=== PATIENT | female | born 1960 | race Caucasian/White ===

== ENCOUNTER 2016-08-26 02:20 | Emergency (ER) | payer OTHER ==
[~2016-08-26 02:20] MED LIST: AUGMENTIN 875-1 EAC2 PO; CELEXA20 M2 PO; FLAGYL500 M1 PO; PROMETHAZINE HC25 M3 PO; SYNTHROID88 MC1 PO; VIBRAMYCIN100 M1 PO
== END 2016-08-26 02:28 ==
LOC: EDMED 02:20
DX: K11.20 Sialoadenitis, unspecified (principal); Z90.49 Acquired absence of other specified parts of digestive tract; Z90.89 Acquired absence of other organs

== ENCOUNTER 2016-08-28 21:14 | Emergency (ER) | payer OTHER ==
[2016-08-28] MEDS ORDERED: XANAX0.25 M1 PO (22:29)
== END 2016-08-28 23:02 ==
LOC: EDMED 21:14
DX: K11.20 Sialoadenitis, unspecified (principal); F41.9 Anxiety disorder, unspecified

== ENCOUNTER 2016-10-17 20:55 | Inpatient (IN) | payer OTHER ==
[~2016-10-17 20:55] MED LIST changes: +XANAX0.25 M1 PO
[2016-10-17 21:31] LABS: BASO % 0.1 % (0-2); HCT-HEMATOCRIT 39.6 % (34.0-49.0); HGB-HEMOGLOBIN 13.9 gm/dl (12.0-15.5); IMMATURE GRANULOCYTES ABSOLUTE 0.05 tho/cmm (0-0.03); IMMATURE GRANULOCYTES PERCENT 0.3 % (0-0.3); LYMPH % 4.3 % (20-45); LYMPH ABSOLUTE COUNT 0.6 tho/cmm (0.8-4.5); MCH (MEAN CORPUSCULAR HGB) 32.3 pg (28.0-32.0); MCHC MEAN CORPUSCULAR HGB CONC 35.1 % (32.0-36.0); MCV (MEAN CELL VOLUME) 92.1 fl (82.0-96.0); MEAN PLATELET VOLUME 9.4 cmc (9.4-12.4); MONO % 12.9 % (0-12); MONOCYTE ABSOLUTE COUNT 1.9 tho/cmm (0.0-1.2); NEUTROPHIL ABSOLUTE COUNT 12.2 tho/cmm (1.6-8.0); NEUTROPHIL-AUTOMATED 12.2 tho/cmm (1.6-8.0); NEUTROPHILS % 82.4 % (40-80); PLATELET COUNT 194 tho/cmm (150-450); RED CELL DISTRIBUTION WIDTH 12.4 % (12.4-16.4); WHITE BLOOD COUNT 14.8 tho/cmm (4.0-10.0)
[2016-10-17 21:47] LABS: ALB/GLOB RATIO 0.7 (0.8-2.0); ALBUMIN 3.2 g/dl (3.5-5.0); ALKALINE PHOSPHATASE 88 U/L (33-138); ALT/SGPT 20 U/L (12-78); ANION GAP 16 mmol/L (0-20); AST/SGOT 16 U/L (10-40); BILIRUBIN,TOTAL 0.9 mg/dl (0-1.5); BLOOD UREA NITROGEN 9 mg/dl (6-24); CALCIUM 8.9 mg/dl (8.5-10.5); CARBON DIOXIDE-VENOUS 21 mmol/L (22-32); CHLORIDE 97 mmol/l (96-110); CREATININE 1.23 mg/dl (0.50-1.10); GLUCOSE 144 mg/dL (70-110); POTASSIUM 3.3 mmol/L (3.7-5.1); SODIUM 131 mmol/L (135-145); eGFR VALUE FOR BLACK 57 mL/Min
[2016-10-17 22:00] LABS: PROCALCITONIN 6.01 ng/ml (0.05-0.09)
[2016-10-17] MEDS ORDERED: ONDANSETRON HCL8 M1 PO (22:14)
[2016-10-17 22:17] LABS: URINE BILIRUBIN NEGATIVE (NEG); URINE BLOOD SMALL (NEG); URINE GLUCOSE (UA) NEGATIVE (NEG); URINE KETONE NEGATIVE (NEG); URINE LEUKOCYTE ESTERASE POSITIVE (NEG); URINE NITRITE NEGATIVE (NEG); URINE PROTEIN MODERATE (NEG); URINE SPECIFIC GRAVITY 1.005 (1.003-1.030)
[2016-10-17 22:18] LABS: URINE APPEARANCE CLEAR; URINE COLOR YELLOW
[2016-10-17 22:22] LABS: URINE EPITHELIAL CELLS 0-3 /[HPF] (0-10); URINE RBC 0 /[HPF] (0-5); URINE WBC 0-3 /[HPF] (0-5)
[2016-10-18 05:09] LABS: HCT-HEMATOCRIT 34.4 % (34.0-49.0); HGB-HEMOGLOBIN 11.7 gm/dl (12.0-15.5); IMMATURE GRANULOCYTES ABSOLUTE 0.03 tho/cmm (0-0.03); IMMATURE GRANULOCYTES PERCENT 0.3 % (0-0.3); LYMPH % 4.9 % (20-45); LYMPH ABSOLUTE COUNT 0.5 tho/cmm (0.8-4.5); MCH (MEAN CORPUSCULAR HGB) 31.9 pg (28.0-32.0); MCV (MEAN CELL VOLUME) 93.7 fl (82.0-96.0); MEAN PLATELET VOLUME 9.6 cmc (9.4-12.4); MONO % 13.3 % (0-12); MONOCYTE ABSOLUTE COUNT 1.4 tho/cmm (0.0-1.2); NEUTROPHIL ABSOLUTE COUNT 8.3 tho/cmm (1.6-8.0); NEUTROPHIL-AUTOMATED 8.3 tho/cmm (1.6-8.0); NEUTROPHILS % 81.5 % (40-80); PLATELET COUNT 162 tho/cmm (150-450); RED BLOOD COUNT 3.67 mil/cmm (4.00-5.20); RED CELL DISTRIBUTION WIDTH 12.4 % (12.4-16.4); WHITE BLOOD COUNT 10.2 tho/cmm (4.0-10.0)
[2016-10-18 05:18] LABS: ANION GAP 12 mmol/L (0-20); BLOOD UREA NITROGEN 8 mg/dl (6-24); CALCIUM 7.4 mg/dl (8.5-10.5); CARBON DIOXIDE-VENOUS 22 mmol/L (22-32); CHLORIDE 108 mmol/l (96-110); CREATININE 1.21 mg/dl (0.50-1.10); GLUCOSE 151 mg/dL (70-110); POTASSIUM 3.1 mmol/L (3.7-5.1); SODIUM 139 mmol/L (135-145); eGFR VALUE FOR BLACK 58 mL/Min
--- NOTE | 2016-10-18 21:48 | NUR ---
JAYCE CARSON-VISITED WITH PATIENT SHE WAS ASKING NURSE FOR SLEEP AID SO I REVIEWED WITH HER WHAT HER PAIN WAS AND OFFERED PERCOCET OR ULTRAM. SHE SAID PAIN 6/10 AND PREFERRED PERCOCET IT HAS THE TYLENOL TO HELP WITH THE FEVER AND HEADACHE. ALSO OFFERED TO GIVE HER A PRINTOUT ON PYLONEPHRITIS. SHE ASKED ABOUT THE CHARMAINE HOSE SHE WOULD LIKE THEM OFF. I ENCOURAGED HER TO KEEP THEM ON TONIGHT AND MAYBE HAVE THEM OFF TOMORROW WHEN UP AND MOVING AROUND MORE BUT SHE CAN REFUSE THEM AND LET [facility]IMA KNOW. EMR REVIEWED AND LET [facility]A KNOW.
--- NOTE | 2016-10-19 16:30 | NUR ---
VIRTUAL CARE NOTE: PT RESTING ON BED, STATES DOING OK, C/O COUGHING AND CONGESTED, LAB RESULTS AND CHART REVIEWED. RECENT VS HAS TEMP 38.7, PT REQUESTS SOME COUGHING MEDICINE WITH THAT. VN PAGED TO [facility] FOR ORDER AND REPORT THE FEVER. NO CALL BACK YET AT THIS TIME. WILL CON'T TO MONITOR. PT ALSO C/O HEADACHE REQUESTS TYLENOL LIQUID, INFORMED FLOOR NURSE FOR TYLENOL PRN.
--- NOTE | 2016-10-19 19:11 | NUR ---
VIRTUAL CARE NOTE: ASSESSMENT DEFERRED. PT. SLEEPING.
[2016-10-20 06:00] LABS: BASO % 0.1 % (0-2); EOS % 0.4 % (0-7); HCT-HEMATOCRIT 30.9 % (34.0-49.0); HGB-HEMOGLOBIN 10.8 gm/dl (12.0-15.5); IMMATURE GRANULOCYTES ABSOLUTE 0.03 tho/cmm (0-0.03); IMMATURE GRANULOCYTES PERCENT 0.4 % (0-0.3); LYMPH % 7.6 % (20-45); LYMPH ABSOLUTE COUNT 0.6 tho/cmm (0.8-4.5); MCH (MEAN CORPUSCULAR HGB) 32.3 pg (28.0-32.0); MCV (MEAN CELL VOLUME) 92.5 fl (82.0-96.0); MEAN PLATELET VOLUME 9.5 cmc (9.4-12.4); MONOCYTE ABSOLUTE COUNT 1.4 tho/cmm (0.0-1.2); NEUTROPHILS % 74.5 % (40-80); PLATELET COUNT 186 tho/cmm (150-450); RED BLOOD COUNT 3.34 mil/cmm (4.00-5.20); RED CELL DISTRIBUTION WIDTH 12.7 % (12.4-16.4); WHITE BLOOD COUNT 8.1 tho/cmm (4.0-10.0)
[2016-10-20 06:20] LABS: ANION GAP 11 mmol/L (0-20); BLOOD UREA NITROGEN 2 mg/dl (6-24); CALCIUM 8.4 mg/dl (8.5-10.5); CARBON DIOXIDE-VENOUS 24 mmol/L (22-32); CHLORIDE 104 mmol/l (96-110); CREATININE 1.04 mg/dl (0.50-1.10); GLUCOSE 126 mg/dL (70-110); POTASSIUM 3.4 mmol/L (3.7-5.1); SODIUM 136 mmol/L (135-145); eGFR VALUE FOR BLACK 70 mL/Min
[2016-10-20] MEDS ORDERED: CIPRO500 M2 PO (10:51)
[2016-10-20] MEDS ORDERED: GUAIFENESIN PO (10:57)
[2016-10-20] MEDS ORDERED: PERCOCET 5-3251 EACH PO (10:57)
[2016-10-20] MEDS ORDERED: LEVAQUIN500 M1 PO (12:00)
--- NOTE | 2016-10-20 15:03 | NUR ---
1150-VIRTUAL NURSE NOTE-DISMISSAL TEACHING COMPLETED WITH PATIENT AND FAMILY MEMBER. STATES DR MEJIAS TOLD HER THAT SHE COULD CONTINUE TAKING HER LEVAQUIN AT HOME. NURSE WILL CALL DR MEJIAS TO CLARIFY. INSTRUCTED PATIENT SHE COULD TAKE GUAFENISIN OVER THE COUNTER AND MAY TAKE MED WITH DM IN IT. PT STATES THAT WORKS BETTER. ENCOURAGED TO EAT BANANAS FOR POTASSIUM. 1230-DR MEJIAS CONFIRMED PATIENT COULD CONTINUE WITH LEVAQUIN AND TO DC CIPRO. NO OTHER QUESTIONS AT THIS TIME KAE TODD
== END 2016-10-20 13:00 | DRG 690 ==
LOC: EDMED 20:55 → EMR2 10-18 00:07 → 5WD 10-18 00:59
PROVIDERS: Emergency Medicine; Family Medicine; Internal Medicine; ADMIT Hospitalist
DX: N10 Acute pyelonephritis (principal); N17.9 Acute kidney failure, unspecified; E03.9 Hypothyroidism, unspecified
CPT/HCPCS: J0744; J1170; J1580; J1956; J2270; J2405; J2543; J3480; J7030